=== PATIENT | female | born 1990 | race Caucasian/White ===

== ENCOUNTER → 2022-05-19 | Outpatient (CLI) | payer OTHER, SELFPAY ==
[2022-05-19 22:12] LABS: Hepatitis B Surface Antibody Reactive; Hepatitis B Surface Antigen Non-Reactive (Nonreactive)
[2022-05-21 08:09] LABS: Hepatitis B Core Ab Total Negative (Negative)
[2022-05-21 15:22] LABS: Hepatitis B Core AB IgM Negative (Negative)
== END | disposition home or self-care (01) ==
LOC: LAB 15:31
PROVIDERS: Visit Provider Nurse Practitioner Adult Health
DX: B18.2 Chronic viral hepatitis C (principal); Z20.5 Contact with and (suspected) exposure to viral hepatitis
CPT/HCPCS: 36415; 86704; 86705; 86706; 87340